=== PATIENT | male | born 1950 | race Caucasian/White ===

== ENCOUNTER → 2016-10-07 | Outpatient (CLI) | payer MEDICARE ==
[~2016-10-07] MED LIST: ASPIR 8181 MG PO; ASPIR-LOW81 MG PO; ATIVAN1 MG PO; CEPHULAC10 GM/151 PO; CITALOPRAM40 MG PO; COGENTIN0.5 MG PO; COGENTIN1 MG PO; EXELON13.3 MG/21 TD; EXELON4.6 MG/24 T; EXELON9.5 MG/24 TD; GEODON20 M1 IM; LACTULOSE10 GM/151 PO; LISINOPRIL20 MG PO; LORAZEPAM0.5 MG PO; Lovenox40 MG/0.4 PO; MIRTAZAPINE15 M2 PO; MIRTAZAPINE30 MG PO; MOTRIN600 MG PO; MULTI VITAMINS1 TAB PO; MULTIPLE VITAMI1 CAP PO; Mysoline50 MG PO; NAMENDA-7 PO; NICODERM21 MG/24 H TD; OMEPRAZOLE20 MG PO; OXYBUTYNIN5 MG PO; PAXIL20 M1 PO; PAXIL30 M2 PO; PAXIL40 MG PO; PRAVACHOL40 MG PO; PREDNISONE10 M1 PO; PRILOSEC20 M1 PO; PRIMIDONE50 MG PO; PRINIVIL20 M1 PO; PRINIVIL20 MG PO; PROPRANOLOL HCL10 MG PO; REMERON30 MG PO; RISPERDAL1 M1 PO; RISPERDAL2 M1 PO; RISPERDAL2 MG PO; RISPERDAL3 MG PO; RISPERDAL4 M1 PO; SEROQUEL200 MG PO; SEROQUEL400 MG PO; STERILE WATER IJ; TRAZODONE150 MG PO; TYLENOL500 MG PO; TYLENOL650 M1 PO; VIAGRA100 MG PO; VICODIN 5/500 505 MG PO; VITAMIN D1000 IU PO; VITAMIN D5000 UNIT PO; VRAYLAR4.5 MG PO; ZANTAC 150150 MG PO; ZITHROMAX500 MG PO; ZOCOR20 MG PO; Zofran4 MG PO
[2016-10-07 10:59] LABS: ALBUMIN 4.2 gm/dl (3.1-4.5); BILIRUBIN, DIRECT 0.3 mg/dL (0.0-0.2); BILIRUBIN, TOTAL 0.7 mg/dl (0.2-1.0); TOTAL PROTEIN 7.9 gm/dL (6.4-8.2)
== END | disposition home or self-care (01) ==
LOC: LAB 10:08
PROVIDERS: Nurse Practitioner Family
DX: K74.69 Other cirrhosis of liver (principal); R94.5 Abnormal results of liver function studies

== ENCOUNTER 2016-12-23 12:19 | Inpatient (IN) | payer OTHER, MEDICARE ==
[~2016-12-23] VITALS: Ht 170.1 cm; Wt 93.9 kg
[2016-12-23] VITALS (8 sets, daily range): BP systolic 152–210; BP diastolic 86–118
--- NOTE | ~2016-12-23 | EKG ---
[place], [place] ELECTROCARDIOGRAM REPORT NAME: MARY VACA UNIT #: [id number] ROOM: 407 DOCTOR: CRISSY DELANEY MD BIRTHDATE: [birth year] DOS: 12/23/2016 TIME: 1317. IMPRESSION: Normal sinus rhythm with first degree AV block. Nonspecific T-wave flattening, abnormal electrocardiogram. CRISSY DELANEY MD CM:EKGRPT:ELECTROCARDIOGRAM REPORT [id number] CRISSY DELANEY MD
[2016-12-23] MEDS ORDERED: EFFEXOR XR75 MG PO (12:26)
[2016-12-23] MEDS ORDERED: LISINOPRIL10 M1 PO (12:26)
[2016-12-23] MEDS ORDERED: LACTULOSE10 GM/151 PO (12:26)
[2016-12-23] MEDS ORDERED: OMEPRAZOLE20 M2 PO (12:26)
[2016-12-23] MEDS ORDERED: EXELON9.5 MG/24 TD (12:28)
[2016-12-23] MEDS ORDERED: HALDOL5 MG PO (12:28)
[2016-12-23 13:05] LABS: BASO # 0.1 10*3/uL (0.0-0.1); BASO % 1.2 % (0.0-1.0); EOS # 0.4 10*3/uL (0.0-0.4); EOS % 5.3 % (1.0-4.0); HEMATOCRIT 48.5 % (42.0-52.0); HEMOGLOBIN 16.8 g/dl (14.0-18.0); LYMPH % 36.8 % (27.0-41.0); MEAN CELL VOLUME 91.9 fl (80.0-94.0); MEAN CORPUSCULAR HGB 31.8 pg (27.0-31.0); MEAN CORPUSCULAR HGB CONC 34.6 g/dl (33.0-37.0); MONO # 0.4 10*3/uL (0.1-1.0); MONO % 4.8 % (3.0-9.0); NEUT # 4.3 10*3/uL (2.3-7.9); NEUT % 51.8 % (47.0-73.0); PLATELET COUNT AUTOMATED 200 10*3/uL (130-400); RED BLOOD COUNT 5.28 10*6/uL (4.50-5.90); RED CELL DISTRI WIDTH 14.6 % (0-14.5); WHITE BLOOD COUNT 8.3 10*3/uL (4.8-10.8)
[2016-12-23 13:14] LABS: INTERNATIONAL NORM RATIO 1.1 (2.0-3.5); PROTHROMBIN TIME 11.4 SECONDS (9.0-12.4)
[2016-12-23 13:21] LABS: ALBUMIN 4.1 gm/dl (3.1-4.5); ALKALINE PHOSPHATASE 146 U/L (45-117); BILIRUBIN, TOTAL 0.6 mg/dl (0.2-1.0); BUN 6 mg/dl (7-24); CARBON DIOXIDE 25 mmol/L (21-32); CHLORIDE 106 mmol/L (98-107); EST GLOM FILT AFRICAN AMERICAN > 60 ml/min; GLUCOSE 103 mg/dL (65-99); MAGNESIUM 1.7 mg/dL (1.5-2.1); POTASSIUM 3.9 mmol/L (3.5-5.1); SGOT/AST 19 IU/L (3-35); SGPT/ALT 27 U/L (12-78); SODIUM 139 mmol/L (136-145); TOTAL PROTEIN 7.5 gm/dL (6.4-8.2)
[2016-12-23 13:22] LABS: TROPONIN I < 0.015 ng/ml (<0.045)
[2016-12-23 15:14] LABS: BILIRUBIN 1+ (NEGATIVE); BLOOD NEGATIVE (NEGATIVE); CLARITY SL CLOUDY (CLEAR); COLOR YELLOW (YELLOW); GLUCOSE NEGATIVE (NEGATIVE); KETONE TRACE (NEGATIVE); LEUKO ESTERASE NEGATIVE (NEGATIVE); NITRITE NEGATIVE (NEGATIVE); PH 6.5 (5.0-9.0); PROTEIN 1+ (NEGATIVE); SPECIFIC GRAVITY 1.025 (1.005-1.030)
[2016-12-23 18:14] LABS: CKMB 0.5 ng/ml (0.5-3.6); CPK 48 U/L (39-308)
[2016-12-23 18:25] LABS: TROPONIN I < 0.015 ng/ml (<0.045)
[2016-12-24] VITALS: BP 150/74
[2016-12-24 00:42] LABS: CKMB 0.7 ng/ml (0.5-3.6); CPK 38 U/L (39-308); TROPONIN I < 0.015 ng/ml (<0.045)
[2016-12-24 02:43] LABS: URINE REFLEX COMMENT NO (NO)
[2016-12-24 06:40] LABS: BASO # 0.1 10*3/uL (0.0-0.1); BASO % 0.9 % (0.0-1.0); EOS # 0.4 10*3/uL (0.0-0.4); EOS % 5.2 % (1.0-4.0); HEMATOCRIT 46.6 % (42.0-52.0); HEMOGLOBIN 16.1 g/dl (14.0-18.0); LYMPH # 2.7 10*3/uL (1.3-4.4); LYMPH % 35.6 % (27.0-41.0); MEAN CELL VOLUME 91.6 fl (80.0-94.0); MEAN CORPUSCULAR HGB 31.6 pg (27.0-31.0); MEAN CORPUSCULAR HGB CONC 34.5 g/dl (33.0-37.0); MEAN PLATELET VOLUME 9.1 fl (9.6-12.3); MONO # 0.4 10*3/uL (0.1-1.0); MONO % 5.3 % (3.0-9.0); NEUT % 52.9 % (47.0-73.0); PLATELET COUNT AUTOMATED 193 10*3/uL (130-400); RED BLOOD COUNT 5.09 10*6/uL (4.50-5.90); RED CELL DISTRI WIDTH 14.6 % (0-14.5); WHITE BLOOD COUNT 7.5 10*3/uL (4.8-10.8)
[2016-12-24 06:53] LABS: CPK 35 U/L (39-308)
[2016-12-24 06:54] LABS: CKMB < 0.5 ng/ml (0.5-3.6); TROPONIN I < 0.015 ng/ml (<0.045)
[2016-12-24 06:56] LABS: HEMOGLOBIN A1c 5.4 % (4.8-5.6)
[2016-12-24 07:10] LABS: BUN 8 mg/dl (7-24); CARBON DIOXIDE 26 mmol/L (21-32); CHLORIDE 105 mmol/L (98-107); CHOLESTEROL 207 mg/dL (<200); EST GLOM FILT AFRICAN AMERICAN > 60 ml/min; FREE T4 0.89 ng/dl (0.76-1.46); GLUCOSE 97 mg/dL (65-99); HDL CHOLESTEROL 34 mg/dl (40-60); LDL CHOLESTEROL 152 mg/dL (9-159); MAGNESIUM 1.7 mg/dL (1.5-2.1); PHOSPHOROUS 3.1 mg/dL (2.5-4.9); POTASSIUM 3.3 mmol/L (3.5-5.1); SODIUM 139 mmol/L (136-145); TRIGLYCERIDES 103 mg/dl (<150); VLDL CHOLESTEROL 21 mg/dL (6-40)
[2016-12-24 07:51] LABS: VITAMIN D, 25-HYDROXY 32.3 ng/mL (30-100)
[2016-12-24 07:52] LABS: FOLIC ACID 2.46 ng/mL (>5.38)
[2016-12-24 08:00] VITALS: BP 172/86
[2016-12-24] MEDS ORDERED: Zestril,Prinivi40 MG PO (11:31)
[2016-12-24] MEDS ORDERED: NATURE'S BLEND F1 MG PO (16:05)
== END 2016-12-24 12:20 | disposition home or self-care (01) | DRG 305 ==
LOC: ED 12:19 → 4E 16:00 → EDHOLD 16:00 → 4E 16:25
PROVIDERS: Internal Medicine; Registered Nurse
DX: I16.1 Hypertensive emergency (principal); I85.10 Secondary esophageal varices without bleeding; F03.90 Unspecified dementia, unspecified severity, without behavioral disturbance, psychotic disturbance, mood disturbance, and anxiety; K70.30 Alcoholic cirrhosis of liver without ascites; F43.10 Post-traumatic stress disorder, unspecified; E78.5 Hyperlipidemia, unspecified; F32.9 Major depressive disorder, single episode, unspecified; F17.210 Nicotine dependence, cigarettes, uncomplicated; F41.9 Anxiety disorder, unspecified; K21.9 Gastro-esophageal reflux disease without esophagitis; Z90.49 Acquired absence of other specified parts of digestive tract; Z85.828 Personal history of other malignant neoplasm of skin; Z82.49 Family history of ischemic heart disease and other diseases of the circulatory system; Z79.899 Other long term (current) drug therapy

== ENCOUNTER → 2017-04-04 | Outpatient (CLI) | payer MEDICARE ==
[~2017-04-04] MED LIST changes: +EFFEXOR XR75 MG PO; +HALDOL5 MG PO; +LISINOPRIL10 M1 PO; +NATURE'S BLEND F1 MG PO; +OMEPRAZOLE20 M2 PO; +Zestril,Prinivi40 MG PO
[2017-04-04 09:39] LABS: ALBUMIN 3.9 gm/dl (3.1-4.5); ALKALINE PHOSPHATASE 114 U/L (45-117); BILIRUBIN, DIRECT 0.2 mg/dL (0.0-0.2); BILIRUBIN, TOTAL 0.6 mg/dl (0.2-1.0); BUN 11 mg/dl (7-24); CARBON DIOXIDE 24 mmol/L (21-32); CHLORIDE 105 mmol/L (98-107); EST GLOM FILT AFRICAN AMERICAN > 60 ml/min; GLUCOSE 108 mg/dL (65-99); POTASSIUM 4.1 mmol/L (3.5-5.1); SGOT/AST 20 IU/L (3-35); SGPT/ALT 25 U/L (12-78); SODIUM 137 mmol/L (136-145); TOTAL PROTEIN 7.5 gm/dL (6.4-8.2)
== END | disposition home or self-care (01) ==
LOC: LAB 08:47
PROVIDERS: Internal Medicine Gastroenterology
DX: K74.60 Unspecified cirrhosis of liver (principal)

== ENCOUNTER 2017-05-04 16:40 | Emergency (ER) | payer MEDICARE ==
[~2017-05-04] VITALS: Wt 93.9 kg
[2017-05-04 16:47] VITALS: BP 133/89
== END 2017-05-04 20:18 | disposition home or self-care (01) ==
LOC: ED 16:40
DX: S62.525A Nondisplaced fracture of distal phalanx of left thumb, initial encounter for closed fracture (principal); S50.12XA Contusion of left forearm, initial encounter; S09.90XA Unspecified injury of head, initial encounter; F17.200 Nicotine dependence, unspecified, uncomplicated; Z23 Encounter for immunization; Z79.899 Other long term (current) drug therapy; W10.9XXA Fall (on) (from) unspecified stairs and steps, initial encounter; Y93.01 Activity, walking, marching and hiking; Y92.89 Other specified places as the place of occurrence of the external cause; Y99.8 Other external cause status

== ENCOUNTER → 2017-06-12 | Outpatient (CLI) | payer MEDICARE ==
[2017-06-12 09:46] LABS: BILIRUBIN, DIRECT 0.1 mg/dL (0.0-0.2); TOTAL PROTEIN 7.6 gm/dL (6.4-8.2)
== END | disposition home or self-care (01) ==
LOC: LAB 08:51
PROVIDERS: Internal Medicine Gastroenterology
DX: K74.60 Unspecified cirrhosis of liver (principal)

== ENCOUNTER → 2017-07-07 | Outpatient (CLI) | payer MEDICARE ==
[2017-07-07 09:24] LABS: BASO # 0.1 10*3/uL (0.0-0.1); EOS # 0.4 10*3/uL (0.0-0.4); EOS % 4.4 % (1.0-4.0); HEMATOCRIT 48.1 % (42.0-52.0); HEMOGLOBIN 16.6 g/dl (14.0-18.0); LYMPH % 36.3 % (27.0-41.0); MEAN CELL VOLUME 92.7 fl (80.0-94.0); MEAN CORPUSCULAR HGB CONC 34.5 g/dl (33.0-37.0); MEAN PLATELET VOLUME 8.6 fl (9.6-12.3); MONO # 0.5 10*3/uL (0.1-1.0); MONO % 5.6 % (3.0-9.0); NEUT # 4.3 10*3/uL (2.3-7.9); NEUT % 52.5 % (47.0-73.0); PLATELET COUNT AUTOMATED 242 10*3/uL (130-400); RED BLOOD COUNT 5.19 10*6/uL (4.50-5.90); RED CELL DISTRI WIDTH 13.6 % (0-14.5); WHITE BLOOD COUNT 8.3 10*3/uL (4.8-10.8)
== END | disposition home or self-care (01) ==
LOC: LAB 08:46
PROVIDERS: Internal Medicine Gastroenterology
DX: K74.60 Unspecified cirrhosis of liver (principal)

== ENCOUNTER 2017-07-18 21:21 | Emergency (ER) | payer MEDICARE ==
[2017-07-18] VITALS (7 sets, daily range): BP systolic 149–172; BP diastolic 81–96
[~2017-07-18] VITALS: Wt 89.8 kg
--- NOTE | ~2017-07-18 | O ---
[place], [place] OPERATIVE NOTE NAME: MARY VACA UNIT #: [id number] ROOM: DOCTOR: SAADIA JEAN BAPTISTE MD BIRTHDATE: [birth year] DOS: 07/18/2017 GASTROENDOSCOPIC REPORT. INDICATIONS: The patient has presented with history of status post cholecystectomy, status post common bile duct stent. He never came back for a followup or removal of the stent and some experience of distress in right upper quadrant. ALLERGIES: No known medication. FAMILY HISTORY: Noncontributory. PAST SURGICAL HISTORY: Papillotomy, cholecystectomy, common duct stent. PAST MEDICAL HISTORY: Hypertension. PROCEDURE: Today's procedure part of investigation is an ERCP plus removal of obstructive common duct stent plus papillotomy plus balloon sweep of common duct. PREMEDICATION: Versed and Diprivan. SCOPE: Olympus side-viewing duodenoscope. REPORT: After putting the patient in the left lateral position and after application of lubricant to the scope, the scope was introduced. Thereafter, under direct visualization, I advanced through the length of esophagus without difficulty into gastric pouch into duodenal bulb. Obstructed deeply at the with a sludge, stent was snared and orally extracted. At this stage, the patient was rescoped. Papilla water was reapproached. Guidewire was advanced to the common duct and advanced to the hepatic radicles. Papillotomy was performed and extended and a balloon size 12 was introduced into the proximal hepatic duct and multiple sweeps done, minimal sludge was extracted. The patient extubated, tolerated procedure well. IMPRESSION: ERCP, status post removal of obstructed stent from common duct, status post papillotomy, status post balloon sweep of common duct. PLAN AND DISCUSSION: Routine followup with you in office. The patient with a history of ETOH in past and nicotine dependency at the present time, requires periodic follow up on LFTs. Otherwise, follow up p.r.n. with us in GI Clinic. Thank you very much indeed. [place], [place] OPERATIVE NOTE NAME: MARY VACA UNIT #: [id number] ROOM: DOCTOR: SAADIA JEAN BAPTISTE MD BIRTHDATE: [birth year] SAADIA JEAN BAPTISTE MD CM:OPRECORD:OPERATIVE NOTE 1358 [id number] SAADIA JEAN BAPTISTE MD 07/18/17 1436 interface
[~2017-07-18 21:21] MED LIST changes: +EFFEXOR XR75 M1 PO; +NORVASC5 MG PO; +OMEPRAZOLE D/R20 MG PO; +PROPRANOLOL HYD20 MG PO
[2017-07-18] MEDS ORDERED: CEFUROXIME AXE250 MG PO (22:22)
[2017-07-18 22:45] LABS: BILIRUBIN NEGATIVE (NEGATIVE); BLOOD NEGATIVE (NEGATIVE); CLARITY SL CLOUDY (CLEAR); COLOR YELLOW (YELLOW); GLUCOSE NEGATIVE (NEGATIVE); KETONE NEGATIVE (NEGATIVE); LEUKO ESTERASE NEGATIVE (NEGATIVE); NITRITE NEGATIVE (NEGATIVE); SPECIFIC GRAVITY 1.015 (1.005-1.030)
[2017-07-18 22:54] LABS: BACTERIA TRACE; EPITHELIAL CELLS 0-2
== END 2017-07-18 22:48 | disposition home or self-care (01) ==
LOC: ED 21:22
PROVIDERS: Emergency Medicine Emergency Medical Services
DX: R33.9 Retention of urine, unspecified (principal); F17.200 Nicotine dependence, unspecified, uncomplicated; K21.9 Gastro-esophageal reflux disease without esophagitis; E78.5 Hyperlipidemia, unspecified; I10 Essential (primary) hypertension; Z90.49 Acquired absence of other specified parts of digestive tract; Z98.890 Other specified postprocedural states; Z79.899 Other long term (current) drug therapy

== ENCOUNTER → 2017-07-23 | Outpatient (CLI) | payer MEDICARE ==
[~2017-07-23] MED LIST changes: +CEFUROXIME AXE250 MG PO
[2017-07-23 10:03] LABS: BASO # 0.1 10*3/uL (0.0-0.1); BASO % 1.1 % (0.0-1.0); EOS # 0.4 10*3/uL (0.0-0.4); EOS % 5.3 % (1.0-4.0); HEMATOCRIT 47.2 % (42.0-52.0); HEMOGLOBIN 16.4 g/dl (14.0-18.0); LYMPH # 3.4 10*3/uL (1.3-4.4); LYMPH % 41.1 % (27.0-41.0); MEAN CELL VOLUME 90.4 fl (80.0-94.0); MEAN CORPUSCULAR HGB 31.4 pg (27.0-31.0); MEAN CORPUSCULAR HGB CONC 34.7 g/dl (33.0-37.0); MEAN PLATELET VOLUME 8.6 fl (9.6-12.3); MONO # 0.4 10*3/uL (0.1-1.0); MONO % 5.3 % (3.0-9.0); NEUT # 3.9 10*3/uL (2.3-7.9); PLATELET COUNT AUTOMATED 239 10*3/uL (130-400); RED BLOOD COUNT 5.22 10*6/uL (4.50-5.90); RED CELL DISTRI WIDTH 13.3 % (0-14.5); WHITE BLOOD COUNT 8.3 10*3/uL (4.8-10.8)
[2017-07-23 10:21] LABS: ALBUMIN 3.9 gm/dl (3.1-4.5); ALKALINE PHOSPHATASE 121 U/L (45-117); BUN 9 mg/dl (7-24); CHLORIDE 104 mmol/L (98-107); CREATININE 0.87 mg/dL (0.70-1.30); POTASSIUM 4.2 mmol/L (3.5-5.1); SGOT/AST 20 IU/L (3-35); SGPT/ALT 32 U/L (12-78); SODIUM 134 mmol/L (136-145); TOTAL PROTEIN 7.7 gm/dL (6.4-8.2)
== END | disposition home or self-care (01) ==
LOC: LAB 09:35
PROVIDERS: Urology
DX: I10 Essential (primary) hypertension (principal)

== ENCOUNTER → 2017-07-24 | Outpatient (CLI) | payer MEDICARE | END | disposition home or self-care (01) | LOC: CT 01:59 | DX: R31.9 Hematuria, unspecified (principal); Z90.49 Acquired absence of other specified parts of digestive tract ==

== ENCOUNTER → 2017-11-05 | Outpatient (CLI) | payer MEDICARE ==
[2017-11-05 11:33] LABS: BILIRUBIN 1+ (NEGATIVE); BLOOD NEGATIVE (NEGATIVE); CLARITY CLEAR (CLEAR); COLOR YELLOW (YELLOW); GLUCOSE NEGATIVE (NEGATIVE); KETONE NEGATIVE (NEGATIVE); LEUKO ESTERASE NEGATIVE (NEGATIVE); NITRITE NEGATIVE (NEGATIVE); SPECIFIC GRAVITY 1.025 (1.005-1.030); UROBILINOGEN 0.2 E.U./dl (0.2-1.0)
[2017-11-05 11:45] LABS: WBC 0-2 wbc/hpf (0-5)
[2017-11-06 08:09] LABS: PROSTATE SPECIFIC AG FREE 0.67 ng/mL; PROSTATE SPECIFIC AG, SERUM 4.2 ng/mL (0.0-4.0)
== END | disposition home or self-care (01) ==
LOC: LAB 11:05
PROVIDERS: Urology
DX: Z12.5 Encounter for screening for malignant neoplasm of prostate (principal); R31.9 Hematuria, unspecified; D40.0 Neoplasm of uncertain behavior of prostate

== ENCOUNTER → 2018-01-08 | Outpatient (CLI) | payer MEDICARE ==
[2018-01-09 08:11] LABS: PROSTATE SPECIFIC AG, SERUM 5.2 ng/mL (0.0-4.0)
[2018-01-09 09:06] LABS: PROSTATE SPECIFIC AG FREE 0.6 ng/mL
== END | disposition home or self-care (01) ==
LOC: LAB 09:30
PROVIDERS: Urology
DX: D40.0 Neoplasm of uncertain behavior of prostate (principal)

== ENCOUNTER 2018-06-03 09:26 | Emergency (ER) | payer MEDICARE ==
[~2018-06-03] VITALS: Ht 170.1 cm; Wt 90.7 kg
--- NOTE | ~2018-06-03 | EKG ---
[place], [place] ELECTROCARDIOGRAM REPORT NAME: MARY VACA UNIT #: [id number] ROOM: DOCTOR: ASHLEY DRAFT REPORT BIRTHDATE: [birth year] [facility] Test Date: 2018-06-03 Test Time: 09:50:29 Pat Name: MARY VACA Department: Room: Gender: [employer]: : 1950 Requested By: GABRIELA ARIAS Order Number: [id number] Reading MD: Abebe Barron MD Measurements Intervals [place] Rate: 62 P: 59 AK: 229 QRS: -40 QRSD: 117 T: 48 QT: 423 QTc: 430 Interpretive Statements Sinus rhythm Prolonged AK interval Nonspecific IVCD with LAD Low voltage, extremity leads Electronically Signed On 06-04-2018 11:04:33 PDT by Abebe Barron MD CM:EKGRPT:ELECTROCARDIOGRAM REPORT 0950 1104 GABRIELA ALVARADO DRAFT REPORT GABRIELA ARIAS DO
[2018-06-03 09:58] LABS: BASO # 0.1 10*3/uL (0.0-0.1); BASO % 1.2 % (0.0-1.0); EOS # 0.4 10*3/uL (0.0-0.4); EOS % 4.7 % (1.0-4.0); HEMATOCRIT 46.5 % (42.0-52.0); HEMOGLOBIN 16.4 g/dl (14.0-18.0); LYMPH # 2.8 10*3/uL (1.3-4.4); LYMPH % 33.9 % (27.0-41.0); MEAN CELL VOLUME 90.3 fl (80.0-94.0); MEAN CORPUSCULAR HGB 31.8 pg (27.0-31.0); MEAN CORPUSCULAR HGB CONC 35.3 g/dl (33.0-37.0); MEAN PLATELET VOLUME 8.7 fl (9.6-12.3); MONO # 0.5 10*3/uL (0.1-1.0); MONO % 6.2 % (3.0-9.0); NEUT # 4.4 10*3/uL (2.3-7.9); NEUT % 53.8 % (47.0-73.0); PLATELET COUNT AUTOMATED 229 10*3/uL (130-400); RED BLOOD COUNT 5.15 10*6/uL (4.50-5.90); RED CELL DISTRI WIDTH 13.2 % (0-14.5); WHITE BLOOD COUNT 8.1 10*3/uL (4.8-10.8)
[2018-06-03 10:09] LABS: ACT PARTIAL THROMBO TIME 27.2 SECONDS (20.8-31.5)
[2018-06-03 10:13] LABS: ALBUMIN 3.9 gm/dl (3.1-4.5); ALKALINE PHOSPHATASE 101 U/L (45-117); BUN 6 mg/dl (7-24); CHLORIDE 106 mmol/L (98-107); CREATININE 0.98 mg/dL (0.70-1.30); SGOT/AST 21 IU/L (3-35); SGPT/ALT 33 U/L (12-78); SODIUM 138 mmol/L (136-145); TOTAL PROTEIN 7.6 gm/dL (6.4-8.2)
[2018-06-03 10:15] LABS: TROPONIN I < 0.015 ng/ml (<0.045)
[2018-06-03 10:52] LABS: BILIRUBIN NEGATIVE (NEGATIVE); BLOOD NEGATIVE (NEGATIVE); CLARITY CLEAR (CLEAR); COLOR YELLOW (YELLOW); GLUCOSE NEGATIVE (NEGATIVE); KETONE NEGATIVE (NEGATIVE); LEUKO ESTERASE NEGATIVE (NEGATIVE); NITRITE NEGATIVE (NEGATIVE)
[2018-06-03 11:02] LABS: URINE AMPHETAMINES < 1000 (1000ng/ml); URINE BARBITURATES < 200 (200ng/ml); URINE BENZODIAZEPINES < 200 (200ng/ml); URINE CANNABINOIDS (THC) > 50 (50ng/ml); URINE COCAINE < 300 (300ng/ml); URINE METHADONE < 300 (300ng/ml); URINE OPIATES < 300 (300ng/ml)
[2018-06-03 11:03] LABS: BACTERIA 1+
[2018-06-03 11:04] LABS: URINE PHENCYCLIDINE < 25 (25ng/ml)
[2018-06-03 11:52] VITALS: BP 114/70
== END 2018-06-03 13:34 | disposition left against medical advice (07) ==
LOC: ED 09:26
PROVIDERS: Internal Medicine
DX: G62.9 Polyneuropathy, unspecified (principal); R27.0 Ataxia, unspecified; K21.9 Gastro-esophageal reflux disease without esophagitis; I10 Essential (primary) hypertension; E78.5 Hyperlipidemia, unspecified; F17.200 Nicotine dependence, unspecified, uncomplicated; Z90.49 Acquired absence of other specified parts of digestive tract

== ENCOUNTER → 2018-11-06 | Outpatient (CLI) | payer MEDICARE ==
[2018-11-06 10:06] LABS: BASO # 0.1 10*3/uL (0.0-0.1); BASO % 1.2 % (0.0-1.0); EOS # 0.5 10*3/uL (0.0-0.4); EOS % 5.3 % (1.0-4.0); HEMATOCRIT 49.9 % (42.0-52.0); LYMPH # 3.4 10*3/uL (1.3-4.4); LYMPH % 37.3 % (27.0-41.0); MEAN CELL VOLUME 92.6 fl (80.0-94.0); MEAN CORPUSCULAR HGB 31.5 pg (27.0-31.0); MEAN CORPUSCULAR HGB CONC 34.1 g/dl (33.0-37.0); MEAN PLATELET VOLUME 8.8 fl (9.6-12.3); MONO # 0.6 10*3/uL (0.1-1.0); MONO % 6.4 % (3.0-9.0); NEUT # 4.5 10*3/uL (2.3-7.9); NEUT % 49.5 % (47.0-73.0); PLATELET COUNT AUTOMATED 249 10*3/uL (130-400); RED BLOOD COUNT 5.39 10*6/uL (4.50-5.90); RED CELL DISTRI WIDTH 13.3 % (0-14.5); WHITE BLOOD COUNT 9.2 10*3/uL (4.8-10.8)
[2018-11-06 10:07] LABS: ALBUMIN 4.2 gm/dl (3.1-4.5); ALKALINE PHOSPHATASE 130 U/L (45-117); BUN 7 mg/dl (7-24); CHLORIDE 102 mmol/L (98-107); CREATININE 0.98 mg/dL (0.70-1.30); POTASSIUM 3.9 mmol/L (3.5-5.1); SGOT/AST 20 IU/L (3-35); SGPT/ALT 34 U/L (12-78); SODIUM 134 mmol/L (136-145); TOTAL PROTEIN 7.7 gm/dL (6.4-8.2)
== END | disposition home or self-care (01) ==
LOC: LAB 09:07
PROVIDERS: Urology
DX: Z12.5 Encounter for screening for malignant neoplasm of prostate (principal); I10 Essential (primary) hypertension

== ENCOUNTER 2020-01-01 15:41 | Emergency (ER) | payer MEDICARE ==
[~2020-01-01] VITALS: Ht 170.1 cm; Wt 90.7 kg
[2020-01-01 17:21] LABS: BILIRUBIN 1+ (NEGATIVE); CLARITY SL CLOUDY (CLEAR); COLOR YELLOW (YELLOW); GLUCOSE NEGATIVE (NEGATIVE); KETONE 1+ (NEGATIVE)
[2020-01-01 17:22] LABS: BACTERIA 1+; BLOOD NEGATIVE (NEGATIVE); LEUKO ESTERASE TRACE (NEGATIVE); MUCOUS 4+; NITRITE NEGATIVE (NEGATIVE); UROBILINOGEN 0.2 E.U./dl (0.2-1.0)
[2020-01-01 17:28] LABS: BASO # 0.1 10*3/uL (0.0-0.1); BASO % 0.8 % (0.0-1.0); EOS # 0.4 10*3/uL (0.0-0.4); EOS % 3.4 % (1.0-4.0); HEMATOCRIT 48.8 % (42.0-52.0); LYMPH # 2.2 10*3/uL (1.3-4.4); LYMPH % 18.1 % (27.0-41.0); MEAN CELL VOLUME 93.5 fl (80.0-94.0); MEAN CORPUSCULAR HGB 31.8 pg (27.0-31.0); MEAN PLATELET VOLUME 8.6 fl (9.6-12.3); MONO # 0.5 10*3/uL (0.1-1.0); MONO % 3.9 % (3.0-9.0); NEUT # 8.7 10*3/uL (2.3-7.9); NEUT % 73.5 % (47.0-73.0); PLATELET COUNT AUTOMATED 238 10*3/uL (130-400); RED BLOOD COUNT 5.22 10*6/uL (4.50-5.90); RED CELL DISTRI WIDTH 13.8 % (0-14.5); WHITE BLOOD COUNT 11.9 10*3/uL (4.8-10.8)
[2020-01-01 17:38] LABS: ACT PARTIAL THROMBO TIME 27.8 SECONDS (20.0-32.1); INTERNATIONAL NORM RATIO 1.1 (2.0-3.5)
[2020-01-01 17:43] LABS: ALKALINE PHOSPHATASE 130 U/L (45-117); BUN 9 mg/dl (7-24); CHLORIDE 104 mmol/L (98-107); CREATININE 0.97 mg/dL (0.70-1.30); LIPASE 54 U/L (73-393); POTASSIUM 4.2 mmol/L (3.5-5.1); SGOT/AST 33 IU/L (3-35); SGPT/ALT 45 U/L (12-78); SODIUM 136 mmol/L (136-145); TOTAL PROTEIN 7.7 gm/dL (6.4-8.2)
[2020-01-01 17:46] LABS: ETHYL ALCOHOL < 3.0 mg/dl (<3); TROPONIN I < 0.015 ng/ml (<0.045)
[2020-01-01 19:29] VITALS: BP 129/71
== END 2020-01-01 21:08 | disposition home or self-care (01) ==
LOC: ED 15:41
PROVIDERS: Nurse Practitioner Family
DX: S93.402A Sprain of unspecified ligament of left ankle, initial encounter (principal); I10 Essential (primary) hypertension; K21.9 Gastro-esophageal reflux disease without esophagitis; F32.9 Major depressive disorder, single episode, unspecified; F41.9 Anxiety disorder, unspecified; E78.5 Hyperlipidemia, unspecified; F17.200 Nicotine dependence, unspecified, uncomplicated; W10.9XXA Fall (on) (from) unspecified stairs and steps, initial encounter; Y93.89 Activity, other specified; Y92.89 Other specified places as the place of occurrence of the external cause; Y99.8 Other external cause status

== ENCOUNTER 2020-01-19 12:54 | Inpatient (IN) | payer MEDICARE ==
[~2020-01-19] VITALS: Ht 170.1 cm; Wt 103.9 kg
[2020-01-19 12:54] VITALS: BP 92/55
[2020-01-19 13:26] LABS: BASO # 0.1 10*3/uL (0.0-0.1); BASO % 0.8 % (0.0-1.0); EOS # 0.3 10*3/uL (0.0-0.4); EOS % 2.3 % (1.0-4.0); HEMATOCRIT 45.1 % (42.0-52.0); LYMPH # 3.1 10*3/uL (1.3-4.4); LYMPH % 21.1 % (27.0-41.0); MEAN CORPUSCULAR HGB 31.5 pg (27.0-31.0); MEAN CORPUSCULAR HGB CONC 33.9 g/dl (33.0-37.0); MEAN PLATELET VOLUME 8.7 fl (9.6-12.3); MONO # 0.8 10*3/uL (0.1-1.0); MONO % 5.3 % (3.0-9.0); NEUT # 10.2 10*3/uL (2.3-7.9); NEUT % 70.2 % (47.0-73.0); PLATELET COUNT AUTOMATED 392 10*3/uL (130-400); RED BLOOD COUNT 4.85 10*6/uL (4.50-5.90); RED CELL DISTRI WIDTH 13.8 % (0-14.5); WHITE BLOOD COUNT 14.6 10*3/uL (4.8-10.8)
[2020-01-19 13:34] LABS: ACT PARTIAL THROMBO TIME 25.4 SECONDS (20.0-32.1)
[2020-01-19 13:40] LABS: ALBUMIN 3.5 gm/dl (3.1-4.5); ALKALINE PHOSPHATASE 144 U/L (45-117); BUN 11 mg/dl (7-24); CHLORIDE 105 mmol/L (98-107); CREATININE 1.17 mg/dL (0.70-1.30); LIPASE 62 U/L (73-393); POTASSIUM 4.2 mmol/L (3.5-5.1); SGOT/AST 26 IU/L (3-35); SGPT/ALT 45 U/L (12-78); SODIUM 136 mmol/L (136-145)
[2020-01-19 13:41] LABS: TROPONIN I < 0.015 ng/ml (<0.045)
[2020-01-19 14:15] VITALS: BP 88/54
[2020-01-19 14:30] VITALS: BP 92/60
--- NOTE | 2020-01-19 16:30 | NUR ---
PATIENT DENIES WANTING CATHED FOR SPECIMEN. STATES HE WILL TRY TO GO.
[2020-01-19 17:45] VITALS: BP 124/86
--- NOTE | 2020-01-19 18:01 | NUR ---
PATIENT ASKED TO URINATE FOR SPECIMEN MULTIPLE TIMES. PATIENT DENIES WANTING CATHETER.
[2020-01-19 20:12] VITALS: BP 128/71
[2020-01-19 20:20] VITALS: BP 155/82
--- NOTE | 2020-01-19 20:20 | NUR ---
A 69, admitted to 4E, under the services of DAGMAR Carrillo DO with a diagnosis of RIB FRACTURES, HEMOTHORAX ON RIGHT. Chief complaint is LEFT SIDED CHEST PAIN. Patient arrived via ambulance from ER. Monitor applied. Initial assessment completed. Vital signs taken and recorded. DAGMAR CARRILLO DO notified of admission to the unit. Orders received. See assessment for past medical history, medications and allergies. Patient and/or family oriented to unit. visitation policy reviewed. Clothing/patient valuable form completed. PAMELA ADAMS
--- NOTE | 2020-01-19 20:28 | NUR ---
PT URINATED IN THE BED HOWEVER DUE TO LOW STAFFING, NO STAFF AVAILABLE AFTER REPEATED ATTEMPTS TO CHANGE THE PATIENT. PT ALSO NOTED TO HAVE SATS AT 90% ON ROOM AIR, SLUMPED DOWN IN BED BUT NO ONE TO ASSIST THIS RN TO REPOSITION HIM. PT PLACED ON 2L O2 WITH IMPROVEMENT TO 94% ON NC. PT DENIES SOB. BED READY ON 4E, PT TRANSPORTED IN STABLE CONDITION WITH SUPPLIES FOR THIS RN TO ASSIST CLEANING PT UP WITH HEP FROM FLOOR STAFF. BEDSIDE REPORT GIVEN TO GIAN SANTIAGO.
--- NOTE | 2020-01-19 20:49 | NUR ---
DR. HESTER NOTIFIED OF CONSULT FOR PATIENT FOR TRAUMATIC RIB FRACTURES WITH HEMOTHORAX.
--- NOTE | 2020-01-19 21:02 | NUR ---
DR. BARTON NOTIFIED THAT PATIENT DOES NOT KNOW HIS HOME MEDICATIONS AND NO CLAIM HISTORY.
--- NOTE | 2020-01-19 22:49 | NUR ---
PATIENT MEDICATED WITH NORCO FOR COMPLAINTS OF LEFT RIB PAIN. WILL MONITOR FOR EFFECTIVENESS.
--- NOTE | 2020-01-19 23:58 | NUR ---
NORCO EFFECTIVE AT THIS TIME. PATIENT RESTING IN BED WITH EYES CLOSED. NO SIGNS OR SYMPTOMS OF DISTRESS NOTED. O2 ON AT 2L N/C. CALL LIGHT IN REACH.
[2020-01-20] VITALS (12 sets, daily range): BP systolic 106–148; BP diastolic 49–82
[2020-01-20 06:23] LABS: BUN 15 mg/dl (7-24); CHLORIDE 102 mmol/L (98-107); CREATININE 0.89 mg/dL (0.70-1.30); POTASSIUM 4.5 mmol/L (3.5-5.1); SODIUM 138 mmol/L (136-145)
[2020-01-20 06:26] LABS: BASO % 0.3 % (0.0-1.0); EOS % 0.1 % (1.0-4.0); HEMATOCRIT 41.1 % (42.0-52.0); LYMPH # 1.9 10*3/uL (1.3-4.4); MEAN CELL VOLUME 94.1 fl (80.0-94.0); MEAN CORPUSCULAR HGB 31.6 pg (27.0-31.0); MEAN CORPUSCULAR HGB CONC 33.6 g/dl (33.0-37.0); MEAN PLATELET VOLUME 9.2 fl (9.6-12.3); MONO # 0.8 10*3/uL (0.1-1.0); MONO % 4.8 % (3.0-9.0); NEUT # 13.2 10*3/uL (2.3-7.9); NEUT % 82.3 % (47.0-73.0); PLATELET COUNT AUTOMATED 362 10*3/uL (130-400); RED BLOOD COUNT 4.37 10*6/uL (4.50-5.90); RED CELL DISTRI WIDTH 13.9 % (0-14.5)
--- NOTE | 2020-01-20 08:00 | NUR ---
IN TO ROOM TO SEE PT. PT SLEEPING BUT AWAKENS EAILY. NO STATED COMPLAINTS. DENIES PAIN AT THIS TIME. RESPIRATIONS ARE EASY AND REGULAR ON ROOM AIR. BED IN LOWEST LOCKED POSITION. CALL LIGHT WITHIN REACH. WILL CONTINUE TO MONITOR. AWAITING [facility] TO OPEN TO GET HOME MEDS.
--- NOTE | 2020-01-20 08:05 | NUR ---
Occupational therapy and nursing screen received. Will follow up with patient for completion of an OT evaluation. Thank you. Rebeka Atkins, OTR/L
--- NOTE | 2020-01-20 09:00 | NUR ---
PHYSICAL THERAPY Screen and eval recieved will follow thank you Margaret Ren PT
--- NOTE | 2020-01-20 09:30 | NUR ---
Link Trainer Mechanic in to talk to patient. Patient states lives at home with . There are 13 steps in the home. Physician: bernadette nuñez [facility]acy: [facility] Home health services: none Patient's level of ADLs: INDEPENDENT Patient has working utilities: all working DME: none Follow-up physician's appointment after d/c: will be made by hospitalist nurse director upon discharge Does patient want to access PORTAL?: no Discharge plan discussed with patient, he states he lives at home with his , he is normally independent in adls and ambulation, drives, he stated to have some difficulty with ambulation after he fell down his basement steps. he discussed with him and educated him on a short term penitentiary for 5 days of rehab and 24 hour care, patient declined, stated he was returning home, also discussed VNA and educated him on their services, he stated he didn't want any home health, his would help him with whatever he needs, case management will follow. RADHA COLUNGA
--- NOTE | 2020-01-20 10:30 | NUR ---
Occupational therapy orders received and chart reviewed. Patient has a Dr. Osuna consult pending for a chest tube placement. Will hold on an OT evaluation per discussion with nursing. Thank you. Rebeka Atkins, OTR/L
--- NOTE | 2020-01-20 10:39 | NUR ---
PHYSICAL THERAPY Melissa received chart reviewed pt to be seen by for possible CT placement as pt with R side hemothorax. Spoke w nsg will wait until MD has seen pt and follow as appropriately. Margaret Ren PT
[2020-01-20 13:16] LABS: BODY FLUID WBC 3451 /uL
[2020-01-20 13:54] LABS: BF LYMPHOCYTES 9 %; BF MACROPHAGES 35 %; BF MESOTHELIALS 1 %; BF NEUTROPHILS 52 %
--- NOTE | 2020-01-20 14:00 | NUR ---
CHEST TUBE HOOKED UP AT THIS TIME WITH HELP OF KINDRA SPRINGER. DRANING DARK RED BLOOD.
--- NOTE | 2020-01-20 14:13 | NUR ---
PHYSICAL THERAPY Per nsg just had chest tube placed and monitoring for BP's and to defer activity at this time, will follow for eval in the AM. Margaret Ren PT
--- NOTE | 2020-01-20 14:14 | NUR ---
Occupational therapy orders received and chart reviewed. Per discussion with nursing, patient had a chest tube placed and they were monitoring his blood pressures closely. Will hold on therapy until the AM. Thank you. Rebeka Atkins OTR/L
--- NOTE | 2020-01-20 15:15 | NUR ---
IN PT ROOM AT THIS TIME TO CHECK BLOOD PRESSURE, PT HAS NO COMPLAINTS AT THIS TIME. DINNER IS NOW IN THE ROOM AND ASKING FOR HELP WITH EATING. CALL LIGHT WITHIN REACH, WILL CONTINUE TO MONITOR. I DISCUSSED TO THE PATIENT THAT I WILL BE CHECKING BLOOD PRESSURES UNTIL 1615, HE VERBALIZES AGREEMENT.
--- NOTE | 2020-01-20 19:36 | NUR ---
PATIENT MEDICATED WITH NORCO FOR COMPLAINTS OF RIGHT SIDED RIB PAIN. CHEST TUBE INTACT AND DRAINING BLOOD. RESPIRATIONS REGULAR AND NON-LABORED ON 2L N/C. WILL CONTINUE TO MONITOR. CALL LIGHT IN REACH.
--- NOTE | 2020-01-20 21:00 | NUR ---
JENNIFER EFFECTIVE AT THIS TIMW.
[2020-01-21] VITALS: BP 117/56
[2020-01-21 06:09] LABS: BASO # 0.1 10*3/uL (0.0-0.1); BASO % 0.8 % (0.0-1.0); EOS # 0.2 10*3/uL (0.0-0.4); EOS % 1.5 % (1.0-4.0); HEMATOCRIT 36.1 % (42.0-52.0); LYMPH # 3.3 10*3/uL (1.3-4.4); LYMPH % 29.5 % (27.0-41.0); MEAN CELL VOLUME 94.3 fl (80.0-94.0); MEAN CORPUSCULAR HGB 31.6 pg (27.0-31.0); MEAN CORPUSCULAR HGB CONC 33.5 g/dl (33.0-37.0); MEAN PLATELET VOLUME 9.2 fl (9.6-12.3); MONO # 0.7 10*3/uL (0.1-1.0); MONO % 6.5 % (3.0-9.0); NEUT # 6.7 10*3/uL (2.3-7.9); NEUT % 61.2 % (47.0-73.0); PLATELET COUNT AUTOMATED 279 10*3/uL (130-400); RED BLOOD COUNT 3.83 10*6/uL (4.50-5.90); RED CELL DISTRI WIDTH 14.1 % (0-14.5)
[2020-01-21 06:43] LABS: BUN 18 mg/dl (7-24); CHLORIDE 106 mmol/L (98-107); CREATININE 0.89 mg/dL (0.70-1.30); POTASSIUM 3.8 mmol/L (3.5-5.1); SODIUM 138 mmol/L (136-145)
[2020-01-21 08:00] VITALS: BP 136/48
--- NOTE | 2020-01-21 08:16 | NUR ---
WALKED IN TO PTs FOR AM ASSESSMENT, PT STOPPED THIS NURSE AT THE DOOR AND SAID HE DIDN'T WANT ANYTHING. PT WAS VERY ANXIOUS AND AGITATED AT THIS TIME. TALKED PT DOWN TO A MORE CALM DEMEANOR. PT FURTHER STATED HE WANTED A CIGARETTE AND IS FRUSTRATED THAT HE CAN'T DO ANYTHING ON HIS OWN. 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 EDUCATED PT ON IMPORTANCE OF HISPITALIZATION FOR THE CHEST TUBE MAINTANCE. IN TO SEE PT AT THIS TIME. INFORMED PT WE ARE WAITING ON TO SEE THE PT FOR FURTHER GUIDANCE.
--- NOTE | 2020-01-21 08:39 | NUR ---
NORCO AND HALDOL GIVEN FOR COMPLAINTS OF RIGHT SIDED BACK PAIN AT CHEST [facility] SITE AND INCREASED AGITATION. WILL MONITOR. CALL LIGHT IN REACH. CHEST TUBE IN PLACE. BED ALARM ON.
--- NOTE | 2020-01-21 09:00 | NUR ---
case management contacted patient's Nikia regarding discharge plans. informed her that case management discussed with patient a short term intermediate for rehab prior to returning home and he declined. was in agreement with this decision. she stated she has been patient's caregiver for the last two years. she helps him with all of his adls. he has a bedside commode at home that he uses and she states he prefers to sleep on the couch. discussed with her [facility] and educated her on their services. she was agreeable to this. given choice of companies she chose [facility]. case management will send referral to [facility] for when patient is medicall stable for discharge
--- NOTE | 2020-01-21 09:20 | NUR ---
Physical Therapy evaluation completed on fourth floor with full evaluation to follow. Recommend physical therapy per plan of care and SNF upon discharge. Did speak with case management regarding rehab and concerns for home, pt only able to stand w FWW at this time with assist x 2. Has a multi level home/steps with limited HR's.Thank you for this referral. Margaret Ren PT
--- NOTE | 2020-01-21 09:26 | NUR ---
PER PT, NORCO AND HALDOL WERE EFFECTIVE AND MOOD IS NOW BETTER. PT IS MORE COMPLIANT AND FEELING BETTER FOLLOWING HALDOL. BACK PAIN RATED 1/10. CALL LIGHT IN REACH. WILL CONTINUE TO MONITOR.
--- NOTE | 2020-01-21 10:28 | NUR ---
PODIATRY RESIDENT AWARE OF CONSULT. SAID HE WILL SEE THE PT TODAY.
[2020-01-21 11:09] LABS: ACID FAST SPEC PROCESSING Direct Inoculation (.)
[2020-01-21 12:00] VITALS: BP 141/62
--- NOTE | 2020-01-21 12:24 | NUR ---
case management [facility], patient's information faxed
--- NOTE | 2020-01-21 12:43 | NUR ---
NO VOICED COMPLAINTS. PT STATES HE FEELS BETTER THAN EARLIER AND CONTINUES TO FEEL REALAXED AT THIS TIME. CALL LIGHT IN REACH, BED ALARM ON.
--- NOTE | 2020-01-21 13:57 | NUR ---
SPOKE WITH . REQUESTED PT TO JOVI MORE ON HIS RIGHT SIDE FOR DRAINAGE. ENCOURAGED PT TO LAT ON HIS RIGHT SIDE AND ASSISTED HIM TO COMFORTABLE POSITION.
[2020-01-21 16:00] VITALS: BP 117/67
--- NOTE | 2020-01-21 18:03 | NUR ---
TOLERATED PO MEDS WELL. 1350 TOTAL CC OUT IN CHEST TUBE AT THIS TIME. MARKED FOR END OF SHIFT. CALL LIGHT IN REACH.
--- NOTE | 2020-01-21 19:22 | NUR ---
PT. TURNED TO LEFT SIDE. CHEST TUBE CONTINUES TO DRAIN AND LOW CONTINOUS DRAINING THIN BLOODY DRAINAGE.
--- NOTE | 2020-01-21 19:43 | NUR ---
GRACIECO GIVEN PER ORDER FOR RIGHT RIB PAIN RATED "6" SEE MAR.
[2020-01-21 20:00] VITALS: BP 144/74
--- NOTE | 2020-01-21 20:43 | NUR ---
NORCO EFFECTIVE PER PT. FOR PAIN. CHEST TUBE INTACT.
--- NOTE | 2020-01-21 23:50 | NUR ---
24 HR chart check completed.
[2020-01-22] VITALS: BP 103/50
--- NOTE | 2020-01-22 02:47 | NUR ---
NORCO GIVEN PER ORDER FOR PAIN IN RIBS RATED "6" WORSE WITH COUGH. FEELS BETTER SITTING UP PER PT. SEE MAR.
--- NOTE | 2020-01-22 03:45 | NUR ---
NORCO EFFECTIVE FOR PAIN PATIENT RESTING QUIETLY.
--- NOTE | 2020-01-22 05:57 | NUR ---
URINE FOR UA OBTAINED AND SENT TO LAB.
[2020-01-22 06:03] LABS: BASO # 0.1 10*3/uL (0.0-0.1); BASO % 0.9 % (0.0-1.0); EOS # 0.5 10*3/uL (0.0-0.4); EOS % 4.3 % (1.0-4.0); HEMATOCRIT 36.2 % (42.0-52.0); LYMPH # 3.8 10*3/uL (1.3-4.4); LYMPH % 31.9 % (27.0-41.0); MEAN CORPUSCULAR HGB CONC 33.7 g/dl (33.0-37.0); MONO # 0.9 10*3/uL (0.1-1.0); MONO % 7.4 % (3.0-9.0); NEUT # 6.5 10*3/uL (2.3-7.9); NEUT % 55.1 % (47.0-73.0); PLATELET COUNT AUTOMATED 286 10*3/uL (130-400); RED BLOOD COUNT 3.81 10*6/uL (4.50-5.90); RED CELL DISTRI WIDTH 13.9 % (0-14.5); WHITE BLOOD COUNT 11.8 10*3/uL (4.8-10.8)
[2020-01-22 06:13] LABS: BILIRUBIN NEGATIVE (NEGATIVE); BLOOD NEGATIVE (NEGATIVE); CALCIUM OXALATE CRYSTALS 1+; CLARITY SL CLOUDY (CLEAR); COLOR YELLOW (YELLOW); GLUCOSE NEGATIVE (NEGATIVE); KETONE NEGATIVE (NEGATIVE); LEUKO ESTERASE NEGATIVE (NEGATIVE); NITRITE NEGATIVE (NEGATIVE); RBC 0-2 rbc/hpf (0-2); UROBILINOGEN 0.2 E.U./dl (0.2-1.0)
[2020-01-22 08:00] VITALS: BP 131/64
--- NOTE | 2020-01-22 08:31 | NUR ---
PT RESTING IN BED. NO DISTRESS NOTED. WILL MONITOR
--- NOTE | 2020-01-22 08:57 | NUR ---
PT REQUESTED AND GIVEN NORCO FOR C/O RIGHT SIDE PAIN . PT RATES PAIN 5/10 WILL MONITOR
--- NOTE | 2020-01-22 10:45 | NUR ---
NORCO HELPED PER PT WILL MONITOR
--- NOTE | 2020-01-22 14:45 | NUR ---
chest tube catheter removed by dr cuevas
[2020-01-22 16:00] VITALS: BP 118/64
[2020-01-22 20:00] VITALS: BP 118/60
--- NOTE | 2020-01-22 20:06 | NUR ---
NORCO GIVEN FOR C/O RT SIDED BACK PAIN RATED 5/10. CALL LIGHT IN REACH. WILL MONITOR.
--- NOTE | 2020-01-22 21:01 | NUR ---
JENNIFER EFFECTIVE PER PT. CALL LIGHT IN REACH.
[2020-01-23] VITALS: BP 122/45
--- NOTE | 2020-01-23 01:07 | NUR ---
24HR CHART CHECK COMPLETED
[2020-01-23 06:23] LABS: BASO # 0.1 10*3/uL (0.0-0.1); BASO % 0.7 % (0.0-1.0); EOS # 0.6 10*3/uL (0.0-0.4); EOS % 5.7 % (1.0-4.0); HEMATOCRIT 36.5 % (42.0-52.0); LYMPH # 2.8 10*3/uL (1.3-4.4); LYMPH % 27.1 % (27.0-41.0); MEAN CELL VOLUME 94.1 fl (80.0-94.0); MEAN PLATELET VOLUME 9.1 fl (9.6-12.3); MONO # 0.7 10*3/uL (0.1-1.0); MONO % 6.6 % (3.0-9.0); NEUT # 6.1 10*3/uL (2.3-7.9); NEUT % 59.5 % (47.0-73.0); PLATELET COUNT AUTOMATED 307 10*3/uL (130-400); RED BLOOD COUNT 3.88 10*6/uL (4.50-5.90); RED CELL DISTRI WIDTH 13.6 % (0-14.5); WHITE BLOOD COUNT 10.2 10*3/uL (4.8-10.8)
[2020-01-23 08:00] VITALS: BP 125/75
--- NOTE | 2020-01-23 08:02 | NUR ---
Shift chart check completed.
--- NOTE | 2020-01-23 11:05 | NUR ---
Discharge instructions reviewed with patient. Patient receptive and verbalizes understanding. Follow-up care arranged. Written instructions given to patient. IV REMOVED. PT UNDERSTANDS INSTRUCTIONS, NO QUESTIONS AT THIS TIME, DISCHARGE VIA WHEELCHAIR ANNA CARCAMO
== END 2020-01-23 11:00 | disposition home or self-care (01) | DRG 183 ==
LOC: ED 12:54 → 4E 18:41 → EDHOLD 18:41 → 4E 19:34
PROVIDERS: Emergency Medicine; Internal Medicine; Student in an Organized Health Care Education/Training Program; ADMIT Internal Medicine
PROC: 0W9930Z Drainage of Right Pleural Cavity with Drainage Device, Percutaneous Approach (ICD-10-PCS; principal; 2020-01-20)
PROC: 0HBRXZZ Excision of Toe Nail, External Approach (ICD-10-PCS; 2020-01-21)
DX: S22.41XA Multiple fractures of ribs, right side, initial encounter for closed fracture (principal); S27.1XXA Traumatic hemothorax, initial encounter; E87.2 Acidosis; F33.9 Major depressive disorder, recurrent, unspecified; R65.10 Systemic inflammatory response syndrome (SIRS) of non-infectious origin without acute organ dysfunction; J91.8 Pleural effusion in other conditions classified elsewhere; J95.811 Postprocedural pneumothorax; Z82.49 Family history of ischemic heart disease and other diseases of the circulatory system; R73.9 Hyperglycemia, unspecified; I95.9 Hypotension, unspecified; F41.9 Anxiety disorder, unspecified; I10 Essential (primary) hypertension; R74.8 Abnormal levels of other serum enzymes; K21.9 Gastro-esophageal reflux disease without esophagitis; F03.90 Unspecified dementia, unspecified severity, without behavioral disturbance, psychotic disturbance, mood disturbance, and anxiety; Y92.89 Other specified places as the place of occurrence of the external cause; F43.10 Post-traumatic stress disorder, unspecified; G62.9 Polyneuropathy, unspecified; F17.210 Nicotine dependence, cigarettes, uncomplicated; S06.0X0A Concussion without loss of consciousness, initial encounter; E78.5 Hyperlipidemia, unspecified; E66.01 Morbid (severe) obesity due to excess calories; K70.30 Alcoholic cirrhosis of liver without ascites; F41.1 Generalized anxiety disorder; D53.9 Nutritional anemia, unspecified; Y84.8 Other medical procedures as the cause of abnormal reaction of the patient, or of later complication, without mention of misadventure at the time of the procedure; Y92.238 Other place in hospital as the place of occurrence of the external cause; W10.8XXA Fall (on) (from) other stairs and steps, initial encounter; Y99.8 Other external cause status; Z85.828 Personal history of other malignant neoplasm of skin; Z90.49 Acquired absence of other specified parts of digestive tract; Y93.89 Activity, other specified; Z79.899 Other long term (current) drug therapy; Z71.6 Tobacco abuse counseling

== ENCOUNTER → 2021-02-13 | Outpatient (CLI) | payer MEDICARE ==
[2021-02-13 10:59] LABS: BASO # 0.1 10*3/uL (0.0-0.1); BASO % 1.3 % (0.0-1.0); EOS # 0.3 10*3/uL (0.0-0.4); EOS % 4.9 % (1.0-4.0); HEMATOCRIT 49.2 % (42.0-52.0); LYMPH # 2.4 10*3/uL (1.3-4.4); LYMPH % 35.8 % (27.0-41.0); MEAN CELL VOLUME 91.8 fl (80.0-94.0); MEAN CORPUSCULAR HGB 31.2 pg (27.0-31.0); MEAN CORPUSCULAR HGB CONC 33.9 g/dl (33.0-37.0); MEAN PLATELET VOLUME 8.6 fl (9.6-12.3); MONO # 0.4 10*3/uL (0.1-1.0); NEUT # 3.5 10*3/uL (2.3-7.9); NEUT % 51.7 % (47.0-73.0); PLATELET COUNT AUTOMATED 245 10*3/uL (130-400); RED BLOOD COUNT 5.36 10*6/uL (4.50-5.90); RED CELL DISTRI WIDTH 13.2 % (0-14.5); WHITE BLOOD COUNT 6.8 10*3/uL (4.8-10.8)
[2021-02-13 11:18] LABS: ALBUMIN 3.8 gm/dl (3.1-4.5); ALKALINE PHOSPHATASE 144 U/L (45-117); BUN 9 mg/dl (7-24); CHLORIDE 109 mmol/L (98-107); CHOLESTEROL 217 mg/dL (<200); CREATININE 0.94 mg/dL (0.70-1.30); LDL CHOLESTEROL 160 mg/dL (9-159); POTASSIUM 3.6 mmol/L (3.5-5.1); SGOT/AST 14 IU/L (3-35); SGPT/ALT 26 U/L (12-78); SODIUM 138 mmol/L (136-145); TOTAL PROTEIN 7.7 gm/dL (6.4-8.2); TRIGLYCERIDES 111 mg/dl (<150)
== END | disposition home or self-care (01) ==
LOC: LAB 10:37
PROVIDERS: ATTEND Psychiatry & Neurology Neurology
DX: Z79.899 Other long term (current) drug therapy (principal)

== ENCOUNTER 2022-08-04 10:20 | Emergency (ER) | payer MEDICARE ==
[~2022-08-04] VITALS: Ht 170.1 cm; Wt 83.5 kg
[2022-08-04 11:09] LABS: BASO # 0.1 10*3/uL (0.0-0.1); BASO % 1.1 % (0.0-1.0); EOS # 0.3 10*3/uL (0.0-0.4); EOS % 4.2 % (1.0-4.0); HEMATOCRIT 44.5 % (42.0-52.0); LYMPH # 2.4 10*3/uL (1.3-4.4); LYMPH % 33.2 % (27.0-41.0); MEAN CELL VOLUME 91.4 fl (80.0-94.0); MEAN CORPUSCULAR HGB CONC 35.1 g/dl (33.0-37.0); MONO # 0.4 10*3/uL (0.1-1.0); MONO % 5.2 % (3.0-9.0); NEUT # 4.1 10*3/uL (2.3-7.9); NEUT % 56.2 % (47.0-73.0); PLATELET COUNT AUTOMATED 215 10*3/uL (130-400); RED BLOOD COUNT 4.87 10*6/uL (4.50-5.90); RED CELL DISTRI WIDTH 13.7 % (0-14.5); WHITE BLOOD COUNT 7.4 10*3/uL (4.8-10.8)
[2022-08-04 11:20] LABS: ACT PARTIAL THROMBO TIME 29.8 SECONDS (20.0-32.1); INTERNATIONAL NORM RATIO 1.1 (2.0-3.5)
[2022-08-04 11:29] LABS: ALKALINE PHOSPHATASE 116 U/L (45-117); BUN 10 mg/dl (7-24); CHLORIDE 106 mmol/L (98-107); CPK 43 U/L (39-308); CREATININE 0.82 mg/dL (0.70-1.30); POTASSIUM 3.1 mmol/L (3.5-5.1); SGPT/ALT 23 U/L (12-78); SODIUM 139 mmol/L (136-145); TOTAL PROTEIN 7.2 gm/dL (6.4-8.2)
[2022-08-04 11:30] VITALS: BP 194/92
== END 2022-08-04 15:03 | disposition left against medical advice (07) ==
LOC: ED 10:20
PROVIDERS: Family Medicine
DX: R47.81 Slurred speech (principal); Z79.899 Other long term (current) drug therapy; Z90.49 Acquired absence of other specified parts of digestive tract; F17.200 Nicotine dependence, unspecified, uncomplicated

== ENCOUNTER 2025-01-14 21:30 | Emergency (ER) | payer MEDICARE ==
[~2025-01-14] VITALS: Ht 175.2 cm; Wt 66.5 kg
[2025-01-15 01:59] LABS: BASO # 0.1 10*3/uL (0.0-0.1); BASO % 0.5 % (0.0-1.0); EOS # 0.2 10*3/uL (0.0-0.4); EOS % 1.3 % (1.0-4.0); HEMATOCRIT 37.2 % (42.0-52.0); MEAN CELL VOLUME 94.4 fl (80.0-94.0); MEAN CORPUSCULAR HGB 31.2 pg (27.0-31.0); MEAN CORPUSCULAR HGB CONC 33.1 g/dl (33.0-37.0); MEAN PLATELET VOLUME 8.9 fl (9.6-12.3); MONO # 0.8 10*3/uL (0.1-1.0); MONO % 6.6 % (3.0-9.0); NEUT # 9.2 10*3/uL (2.3-7.9); NEUT % 76.3 % (47.0-73.0); PLATELET COUNT AUTOMATED 287 10*3/uL (130-400); RED BLOOD COUNT 3.94 10*6/uL (4.50-5.90); WHITE BLOOD COUNT 12.1 10*3/uL (4.8-10.8)
[2025-01-15] MEDS ORDERED: Ondansetron Hydrochloride 4 MG/2 ML VIAL IV ONE (02:20)
[2025-01-15] MEDS ORDERED: MORPHINE Sulfate 2 MG/ML SYR IV ONE (02:20)
[2025-01-15 02:35] LABS: BUN 10 mg/dl (9-23); CHLORIDE 107 mmol/L (98-107); POTASSIUM 3.7 mmol/L (3.4-5.1)
[2025-01-15 10:19] VITALS: BP 163/85
== END 2025-01-15 11:47 | disposition short-term general hospital (02) ==
LOC: ED 21:30
PROVIDERS: Emergency Medicine
DX: S72.141A Displaced intertrochanteric fracture of right femur, initial encounter for closed fracture (principal); I10 Essential (primary) hypertension; E78.5 Hyperlipidemia, unspecified; J44.9 Chronic obstructive pulmonary disease, unspecified; F32.A Depression, unspecified; F41.9 Anxiety disorder, unspecified; K21.9 Gastro-esophageal reflux disease without esophagitis; F03.90 Unspecified dementia, unspecified severity, without behavioral disturbance, psychotic disturbance, mood disturbance, and anxiety; W10.8XXA Fall (on) (from) other stairs and steps, initial encounter; Y93.89 Activity, other specified; Y92.89 Other specified places as the place of occurrence of the external cause; Y99.8 Other external cause status